=== PATIENT | male | born 1965 | race Caucasian/White ===

== ENCOUNTER 2017-09-06 12:07 | Outpatient (CLI) | payer MEDICARE, MEDICAID ==
--- NOTE | 2017-09-06 14:04 | RAD ---
LEFT SHOULDER ARTHROGRAM FOR CT: HISTORY: Evaluate for rotator cuff tear. Pain. M25.512. COMPARISON: None. TECHNIQUE: The patient was brought to the fluoroscopy suite. All questions were answered. Informed consent was obtained. A time out was performed. The patient's left shoulder was prepped and draped in a normal sterile fashion, and 4 mL of Lidocaine was instilled into the superficial and deep soft tissues. Using a 22 gauge needle, the left shoulder joint was accessed, and 10 mL of contrast solution was ins tilled into the glenohumeral joint. The patient tolerated the procedure well without complications. IMPRESSION: Technically successful left shoulder arthrogram for CT. POS: [facility]
--- NOTE | 2017-09-06 14:47 | CT ---
CT LEFT SHOULDER WITH COTNRAST: History Left shoulder pain. COMPARISON: Arthrogram same day. FINDINGS: BICEPS TENDON: Moderate intraarticular tendinosis and undersurface tearing. No dislocation. LABRUM: There is volume loss of the anterior inferior labrum. There is also tearing of the posterior superio r labrum. ROTATOR CUFF: There is a full thickness full width supraspinatus tendon tear from the foot plate with the anterior foot plate having no stub of fibers in the posterior foot plate having a small 1 cm stub of fibers. The tendon was retracted to the level of the mid humeral head. There is also demonstration tearing o f the infraspinatus tendon. Subscapularis has extensive tearing with a full thickness perforation wi th mid fibers. MUSCLES: There is greater than 50% atrophy of the subscapularis. There is also 30-40% atrophy of the supraspi natus. The visualized portion of the left lung appears unremarkable. No displaced rib fracture. IMPRESSION: 1. Full thickness full width supraspinatus tendon tear. Tear is at the foot plate of the anterior tendon, although at the posterior of the foot plate there is a 1 cm stub of fibers. 2. Extensive tearing of the subscapularis with a full thickness perforation of the mid fibers. 3. Greater than 50% atrophy of the subscapularis muscle. 4. 20-30% atrophy of the supraspinatus muscle. 5. Superior and posterior superior labral tearing as well as an anterior labral degeneration. 6. Early subchondral eburnation of the humeral head with osteophyte formation. POS: [facility]
== END 2017-09-06 12:08 | disposition home or self-care (01) ==
LOC: RAD 12:07
PROVIDERS: ATTEND Orthopaedic Surgery
DX: M25.512 Pain in left shoulder (principal); S46.812A Strain of other muscles, fascia and tendons at shoulder and upper arm level, left arm, initial encounter; S43.492A Other sprain of left shoulder joint, initial encounter; M62.512 Muscle wasting and atrophy, not elsewhere classified, left shoulder; M25.712 Osteophyte, left shoulder
CPT/HCPCS: 23350

== ENCOUNTER 2021-06-27 11:08 | Inpatient (IN) | payer MEDICARE, MEDICAID ==
[2021-06-27] MEDS ORDERED: Iopamidol-370 76% 500 ML 1 ML ONE (11:16)
[2021-06-27 12:25] LABS: Hemoglobin 15.2 g/dL (14.0-18.0); Mean Corpuscular HGB CONC 33.7 g/dL (32.0-36.0); Mean Corpuscular Hemoglobin 30.4 pg (27.0-31.0); Mean Corpuscular Volume 90.2 fL (78.0-98.0); Mean Platelet Volume 6.3 fL (7.4-10.4); Platelet Count 169 thou/uL (130-400); RBC Distribution Width 12.1 % (11.5-14.5); White Blood Cell (WBC) Count 8.5 thou/uL (4.8-10.8)
[2021-06-27 12:41] LABS: ALT (SGPT) 18 U/L (8-55); AST (SGOT) 24 U/L (5-34); Albumin 3.4 g/dL (3.5-5.0); Alkaline Phosphatase 60 U/L (40-110); Anion Gap 13 mmol/L (10-20); BUN (Urea Nitrogen) 16 mg/dL (8.4-25.7); Bilirubin, Total 0.4 mg/dL (0.2-1.2); Calc. Creatinine Clearance 0 mL/min (70-130); Calcium 8.3 mg/dL (7.8-10.44); Carbon Dioxide 22 mmol/L (22-29); Chloride 107 mmol/L (98-107); Globulin 3.4 g/dL (2.4-3.5); Glucose 86 mg/dL (70-105); Protein, Total 6.8 g/dL (6.0-8.3); Sodium 138 mmol/L (136-145)
[2021-06-27 12:43] LABS: Band 3 % (5-11); Eosinophils 4 % (0-10); Lymphocytes 16 % (21-51); MDiff Complete? YES; Monocytes 13 % (0-10); Neutrophil 63 % (42-75); Platelet Morphology Comment Appears Adequate; Polychromasia SLIGHT = 2-3 cells (100X) (0-2/hpf)
[2021-06-27] MEDS ORDERED: Nicotine 14 MG PATCH ONE (13:29)
[2021-06-27 15:37] LABS: Bilirubin Negative (Negative); Blood, Urine Negative (Negative); Clarity Clear (Clear); Glucose, Urine (Dipstick) Normal (Negative); Ketone, Urine Negative (Negative); Leukocyte Negative Leu/uL (Negative); Nitrite Negative (Negative); Protein, Urine (Dipstick) Negative (Neg-Trace); Urobilinogen Normal mg/dL (Less than 2); pH, Urine 5.5 (5.0-9.0)
[2021-06-27] MEDS ORDERED: Ondansetron ODT 4 MG TAB PO PRN (18:29)
[2021-06-27] MEDS ORDERED: Acetaminophen 325 MG TAB PO PRN (18:29)
[2021-06-27] MEDS ORDERED: Senokot S 8.6-50 MG TAB PO PRN (18:29)
[2021-06-27] MEDS ORDERED: Ondansetron PF 4 MG/2 ML Vial IVP PRN (18:29)
[2021-06-27] MEDS ORDERED: Electrolyte Replacement Protocol 1 EACH FS SCH (18:45)
[2021-06-27 19:15] LABS: Phosphorus 3.2 mg/dL (2.3-4.7)
[2021-06-27] MEDS: Sodium Chloride 0.9% 1,000 ML IV SCH (19:55)
[2021-06-27 20:09] VITALS: BMI 32.8
[2021-06-27] MEDS ORDERED: Amlodipine 10 MG TAB PO SCH (22:57)
[2021-06-27] MEDS ORDERED: Atorvastatin Calcium 20 MG TAB PO SCH (22:58)
[2021-06-27] MEDS ORDERED: busPIRone HCl 10 MG TAB PO SCH (22:59)
[2021-06-27] MEDS ORDERED: FLU VACC QS2021-22(6MOS UP)/PF 60 MCG/0.5 ML SYRINGE IM ONE (23:00)
[2021-06-27] MEDS ORDERED: Magnesium 2 GM/50 ML 2 GM in Premix Bag 1 BAG IVPB SCH (23:59)
[2021-06-28 04:58] LABS: Anion Gap 11 mmol/L (10-20); BUN (Urea Nitrogen) 11 mg/dL (8.4-25.7); Calc. Creatinine Clearance 149 mL/min (70-130); Calcium 8.5 mg/dL (7.8-10.44); Carbon Dioxide 26 mmol/L (22-29); Chloride 110 mmol/L (98-107); Glucose 117 mg/dL (70-105); Potassium 3.5 mmol/L (3.5-5.1); Sodium 143 mmol/L (136-145)
[2021-06-28 05:26] LABS: Thyroid Stimulating Hormone 3.4884 uIU/mL (0.35-4.94)
[2021-06-28 07:21] LABS: Mean Corpuscular Hemoglobin 29.8 pg (27.0-31.0); Mean Corpuscular Volume 90.5 fL (78.0-98.0); Mean Platelet Volume 6.6 fL (7.4-10.4); Platelet Count 207 thou/uL (130-400); Red Blood Cell (RBC) Count 4.69 mill/uL (4.70-6.10); White Blood Cell (WBC) Count 7.4 thou/uL (4.8-10.8)
[2021-06-28 07:22] LABS: Band 18 % (5-11); Eosinophils 2 % (0-10); Lymphocytes 40 % (21-51); MDiff Complete? YES; Monocytes 9 % (0-10); Neutrophil 31 % (42-75)
[2021-06-28] MEDS ORDERED: Potassium Chloride 20 MEQ TAB PO SCH (08:00)
[2021-06-28] MEDS ORDERED: Losartan 25 MG TAB PO SCH (09:00)
[2021-06-28] MEDS: Nicotine 14 MG PATCH TD SCH (09:41)
[2021-06-28] MEDS: Enoxaparin Sodium 40 MG/0.4 ML SYRINGE SC SCH (09:41)
[2021-06-28] MEDS: PARoxetine 20 MG TAB PO SCH (09:41)
[2021-06-28 11:53] LABS: SARS-CoV-2 PCR by NAA Not Detected (NotDetected)
[2021-06-28] MEDS ORDERED: Sodium Chloride 0.9% 1,000 ML IV SCH (16:00)
[2021-06-28] MEDS: Sodium Chloride 0.9% 1,000 ML IV SCH (18:31)
[2021-06-28] MEDS: Amlodipine 10 MG TAB PO SCH (21:46)
[2021-06-28] MEDS: Atorvastatin Calcium 20 MG TAB PO SCH (21:47)
[2021-06-28] MEDS: busPIRone HCl 10 MG TAB PO SCH (21:47)
[2021-06-29] MEDS: Losartan 25 MG TAB PO SCH (08:08)
[2021-06-29] MEDS: Nicotine 14 MG PATCH TD SCH (08:09)
[2021-06-29] MEDS: Enoxaparin Sodium 40 MG/0.4 ML SYRINGE SC SCH (08:09)
[2021-06-29] MEDS: PARoxetine 20 MG TAB PO SCH (08:10)
[2021-06-29] MEDS: Atorvastatin Calcium 20 MG TAB PO SCH (22:54)
[2021-06-29] MEDS: Amlodipine 10 MG TAB PO SCH (22:54)
[2021-06-29] MEDS: busPIRone HCl 10 MG TAB PO SCH (22:54)
[2021-06-30 05:57] LABS: Anion Gap 13 mmol/L (10-20); BUN (Urea Nitrogen) 10 mg/dL (8.4-25.7); Calc. Creatinine Clearance 171 mL/min (70-130); Calcium 9.4 mg/dL (7.8-10.44); Carbon Dioxide 22 mmol/L (22-29); Chloride 109 mmol/L (98-107); Glucose 102 mg/dL (70-105); Potassium 4.2 mmol/L (3.5-5.1); Sodium 140 mmol/L (136-145)
[2021-06-30 06:25] LABS: Mean Corpuscular HGB CONC 34.3 g/dL (32.0-36.0); Mean Corpuscular Volume 90.4 fL (78.0-98.0); Mean Platelet Volume 8.2 fL (7.4-10.4); Platelet Count 176 thou/uL (130-400); RBC Distribution Width 12.1 % (11.5-14.5); Red Blood Cell (RBC) Count 4.83 mill/uL (4.70-6.10); White Blood Cell (WBC) Count 8.8 thou/uL (4.8-10.8)
[2021-06-30 06:50] LABS: #Eosinphils 0.5 thou/uL (0.0-0.7); #Lymphocytes 3.1 thou/uL (1.20-3.40); #Neutrophils 4.2 thou/uL (1.40-6.50); %Basophils 0.4 % (0.0-1.0); %Lymphocytes 34.9 % (21.0-51.0); %Monocytes 11.1 % (0.0-10.0); %Neutrophils 47.7 % (42.0-75.0)
[2021-06-30] MEDS: Losartan 25 MG TAB PO SCH (08:11)
[2021-06-30] MEDS: Enoxaparin Sodium 40 MG/0.4 ML SYRINGE SC SCH (08:11)
[2021-06-30] MEDS: PARoxetine 20 MG TAB PO SCH (08:11)
[2021-06-30] MEDS: Nicotine 14 MG PATCH TD SCH (08:11)
[2021-06-30] MEDS: Atorvastatin Calcium 20 MG TAB PO SCH (19:48)
[2021-06-30] MEDS: busPIRone HCl 10 MG TAB PO SCH (19:48)
[2021-06-30] MEDS: Amlodipine 10 MG TAB PO SCH (19:48)
[2021-07-01] MEDS: Nicotine 14 MG PATCH TD SCH (08:23)
[2021-07-01] MEDS: Losartan 25 MG TAB PO SCH (08:25)
[2021-07-01] MEDS: Enoxaparin Sodium 40 MG/0.4 ML SYRINGE SC SCH (08:25)
[2021-07-01] MEDS: PARoxetine 20 MG TAB PO SCH (08:25)
[2021-07-01 11:01] LABS: #Basophils 0.1 thou/uL (0.0-0.2); #Eosinphils 0.3 thou/uL (0.0-0.7); #Lymphocytes 2.1 thou/uL (1.20-3.40); #Monocytes 0.7 thou/uL (0.11-0.59); #Neutrophils 3.9 thou/uL (1.40-6.50); %Basophils 0.9 % (0.0-1.0); %Eosinophils 4.9 % (0.0-10.0); %Lymphocytes 29.5 % (21.0-51.0); %Monocytes 9.4 % (0.0-10.0); %Neutrophils 55.5 % (42.0-75.0); Anion Gap 11 mmol/L (10-20); BUN (Urea Nitrogen) 13 mg/dL (8.4-25.7); Calc. Creatinine Clearance 161 mL/min (70-130); Calcium 9.2 mg/dL (7.8-10.44); Carbon Dioxide 26 mmol/L (22-29); Chloride 106 mmol/L (98-107); Glucose 121 mg/dL (70-105); Hemoglobin 14.8 g/dL (14.0-18.0); Mean Corpuscular Hemoglobin 30.5 pg (27.0-31.0); Mean Corpuscular Volume 89.8 fL (78.0-98.0); Platelet Count 264 thou/uL (130-400); RBC Distribution Width 12.2 % (11.5-14.5); Red Blood Cell (RBC) Count 4.86 mill/uL (4.70-6.10); Sodium 139 mmol/L (136-145)
[2021-07-01] MEDS: busPIRone HCl 10 MG TAB PO SCH (19:57)
[2021-07-01] MEDS: Amlodipine 10 MG TAB PO SCH (19:57)
[2021-07-01] MEDS: Atorvastatin Calcium 20 MG TAB PO SCH (19:57)
[2021-07-02 08:11] VITALS: BP 121/73; TEMP 97.5
[2021-07-02 08:15] LABS: Norovirus GI Negative (Negative); Norovirus GII Negative (Negative)
[2021-07-02] MEDS: PARoxetine 20 MG TAB PO SCH (09:45)
[2021-07-02] MEDS: Losartan 25 MG TAB PO SCH (09:46)
[2021-07-02] MEDS: Enoxaparin Sodium 40 MG/0.4 ML SYRINGE SC SCH (09:46)
[2021-07-02] MEDS: Nicotine 14 MG PATCH TD SCH (09:46)
== END 2021-07-02 12:30 | DRG 392 ==
LOC: ERS 11:08 → SURG A 17:11 → OBSVTOIN 06-30 09:37
PROVIDERS: ADMIT Nurse Practitioner Family; ATTEND Internal Medicine
DX: R19.7 Diarrhea, unspecified (principal); E78.5 Hyperlipidemia, unspecified; I10 Essential (primary) hypertension; R53.1 Weakness; G40.909 Epilepsy, unspecified, not intractable, without status epilepticus; E86.0 Dehydration; G89.29 Other chronic pain; F17.290 Nicotine dependence, other tobacco product, uncomplicated; K76.0 Fatty (change of) liver, not elsewhere classified; E87.6 Hypokalemia; N40.0 Benign prostatic hyperplasia without lower urinary tract symptoms; E66.9 Obesity, unspecified; N32.9 Bladder disorder, unspecified; M54.9 Dorsalgia, unspecified; R29.6 Repeated falls; Z87.820 Personal history of traumatic brain injury; Z79.899 Other long term (current) drug therapy; Z71.6 Tobacco abuse counseling; Z68.32 Body mass index [BMI] 32.0-32.9, adult
CPT/HCPCS: 36415; 74177; 80048; 80053; 81003; 82607; 82746; 83630; 83735; 84100; 84443; 85025; 87045; 87046; 87081; 87086; 87324; 87427; 87449; 87798; 96372; 96374; G0378; J1650; J3475; J7050; Q9967; U0003; U0005